=== PATIENT | male | born 1955 | race Caucasian/White ===

== ENCOUNTER 2018-08-22 13:45 | Inpatient (IN) | payer OTHER ==
[~2018-08-22] VITALS: Ht 175.3 cm; Wt 76.0 kg
[2018-08-22 14:23] LABS: HEMATOCRIT 34.1 % (42.0-52.0); MEAN CORPUSCULAR VOLUME 90.1 FL (78-98); MEAN PLATELET VOLUME 8.8 FL (7.4-10.4); PLATELET COUNT 265 X10'3 (140-440); RED BLOOD COUNT 3.79 X10'6 (4.70-6.10); WHITE BLOOD COUNT 7.3 X10'3 (4.5-11.0)
[2018-08-22] MEDS ORDERED: ondansetron 4mg rapidly disintigrating tab PO ONE (14:25)
[2018-08-22] MEDS ORDERED: sulfamethoxazole/trimethoprim DS (800/160mg) tablet PO ONE (14:25)
[2018-08-22] MEDS ORDERED: TETanus/Pertussis (Acell)/Diphther VAC/PF (Tdap-Adult) 0.5ml syringe IM ONE (14:25)
[2018-08-22] MEDS ORDERED: bacitracin 15gm ointment TP ONE (14:25)
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
[2018-08-22] MEDS ORDERED: SULF1TAB49 PO (14:26)
[2018-08-22 14:39] LABS: HEMOGLOBIN 11.4 g/dl (14.0-17.9); MEAN CORPUSCULAR HEMOGLOBIN 29.7 PG (27.0-31.0)
[2018-08-22 15:01] LABS: ANION GAP 22 (8-16); CHLORIDE 84 MMOL/L (99-107); POTASSIUM 4.9 MMOL/L (3.5-5.1); SODIUM 125 MMOL/L (135-145)
[2018-08-22 15:02] LABS: ALANINE AMINOTRANSFERASE 58 U/L (12-78); ALBUMIN 2.7 G/DL (3.4-5.0); ALBUMIN/GLOBULIN RATIO 0.6 (1.1-1.5); ALKALINE PHOSPHATASE 421 IU/L (46-116); BILIRUBIN,TOTAL 2.6 MG/DL (0.1-1.0); BLOOD UREA NITROGEN 20 MG/DL (7-18); BUN/CREATININE RATIO 11.4 (5.4-32.0); CALCIUM 9.1 MG/DL (8.5-10.1); CREATININE 1.76 MG/DL (0.60-1.10); TOTAL PROTEIN 7.4 G/DL (6.4-8.2); eGFR 39 ML/MIN
[2018-08-22 15:04] LABS: GLUCOSE 734 MG/DL (70-104)
[2018-08-22 15:07] LABS: PARTIAL THROMBOPLASTIN TIME 22 SECONDS (22-32)
[2018-08-22 15:09] LABS: ASPARTATE AMINO TRANSFERASE 126 U/L (10-37)
[2018-08-22 15:16] LABS: TOTAL CELLS COUNTED 100
[2018-08-22 15:17] LABS: PLATELET ESTIMATE NORMAL
[2018-08-22] MEDS ORDERED: cyanocobalamin 1,000 mcg/ml inj IM ONE (15:20)
[2018-08-22] MEDS: thiamine 100mg/ml 2ml inj. IV ONE ×2 (16:03→16:55)
[2018-08-22 16:11] LABS: ABG BASE EXCESS 1.9 mmol/L (-2.0-3.0); ABG HCO3 25.6 mmol/L (22.0-26.0); ABG OXYGEN SATURATION 93.2 % (95-98); ABG PCO2 (T) 36.7 mmHg (35.0-48.0); ABG PH (T) 7.461 (7.350-7.450); ABG PO2 (T) 68.3 mmHg (83-108); ALLEN'S TEST Positive; FCOHb 0.3 % (0.5-1.5); FMetHb 0.1 % (0.3-1.12); FO2Hb 92.8 % (94-100); TOTAL HEMOGLOBIN 11.4 G/dl (14.0-18.0)
[2018-08-22] MEDS: insulin regular, human 10 units/0.1 ml syringe IV ONE ×2 (16:18→16:55)
[2018-08-22 16:44] LABS: ETHANOL 0.017 GM/DL (0.0-0.010)
--- NOTE | 2018-08-22 17:09 | NUR ---
DR. CHAVEZ AT THE BEDSIDE FOR INPATIENT ADMISSION INTERVIEW. PATIENT WAS UP TO BATHROOM AND UA OBTAINED.
[2018-08-22] MEDS ORDERED: acetaminophen 325mg tablet PO PRN (17:25)
[2018-08-22] MEDS ORDERED: ondansetron/PF 4mg/2ml inj IV PRN (17:25)
[2018-08-22] MEDS ORDERED: magnesium 4gm in 100ml NS 100 ML IV PRN (17:25)
[2018-08-22] MEDS: K and/or MAG REPLACEMENT MC SCH (17:25)
[2018-08-22] MEDS ORDERED: magnesium hydroxide 30ml (MOM) UD suspension PO PRN (17:25)
[2018-08-22] MEDS ORDERED: potassium Cl 40MEQ/NS 500ml 500 ML IV PRN ×2 (17:25)
[2018-08-22] MEDS ORDERED: potassium Cl 20 mEq SR tablet PO PRN (17:25)
[2018-08-22] MEDS ORDERED: mag hydrox/Alum hydrox/simeth 30ml oral suspension PO PRN (17:25)
[2018-08-22] MEDS ORDERED: magnesium 2GM in 50ml NS 50 ML IV PRN (17:25)
[2018-08-22 17:26] LABS: CLARITY,URINE CLEAR (Clear); COLOR,URINE STRAW (Yellow); GLUCOSE, URINE >=1000 mg/dl (Neg); KETONES,URINE NEGATIVE (Neg); LEUKOCYTE ESTERASE ,URINE NEGATIVE (Neg); NITRITES, URINE NEGATIVE (Neg); OCCULT BLOOD,URINE SMALL (Neg); PH,URINE 5.5 (4.8-8.0); PROTEIN,URINE NEGATIVE (Neg)
[2018-08-22 17:31] LABS: UA COLLECTION TYPE CLN CATCH MIDSTREAM
[2018-08-22 17:32] LABS: BACTERIA,URINE NONE SEEN /HPF (Neg); MUCUS STRANDS NONE SEEN /LPF (Neg); RBC,URINE 0-2 /HPF (0-2); SQUAMOUS EPITHELIAL CELL,UR FEW /LPF (FEW); WBC,URINE 0-4 /HPF (0-4)
[2018-08-22 17:40] LABS: URINE AMPHETAMINE SCREEN NEGATIVE (Neg); URINE BARBITUATE SCREEN NEGATIVE (Neg); URINE BENZODIAZEPINES SCREEN NEGATIVE (Neg); URINE CANNABINOID SCREEN NEGATIVE (Neg); URINE COCAINE SCREEN NEGATIVE (Neg); URINE METHADONE SCREEN NEGATIVE (Neg); URINE OPIATE SCREEN NEGATIVE (Neg); URINE PHENCYCLIDINE SCREEN NEGATIVE (Neg)
[2018-08-22] MEDS ORDERED: NO HOME MEDS (17:45)
[2018-08-22] MEDS ORDERED: LORazepam 1 MG tablet PO PRN (17:45)
[2018-08-22] MEDS ORDERED: dextrose 50%-water 50ml dispensing syringe IV PRN ×5 (17:45→19:05)
[2018-08-22] MEDS ORDERED: thiamine inj. 100 MG in normal saline 100ml IV soln 100 ML IV ONE (17:45)
[2018-08-22] MEDS ORDERED: thiamine inj. 100 MG, magnesium sulf injection 2 GM, MVI, adult No.4 with vit. K 10 ML ... IV SCH ×4 (17:45)
[2018-08-22] MEDS ORDERED: insulin regular, human 100 UNIT in normal saline 100ml IV soln 99 ML IV SCH ×2 (18:30)
[2018-08-22] MEDS ORDERED: folic acid inj. 2 MG, thiamine inj. 100 MG, MVI, adult No.4 with vit. K 10 ML in dextro... IV SCH ×4 (18:30)
[2018-08-22] MEDS ORDERED: glucagon, human recombinant 1mg kit SUBCUT PRN ×2 (18:50→19:05)
[2018-08-22] MEDS ORDERED: MESSAGE TO PHARMACY PO ONE ×2 (18:50→19:05)
[2018-08-22] MEDS ORDERED: dextrose ORAL solution 15 GM/59 ML bottle PO PRN ×4 (18:50→19:05)
[2018-08-22] MEDS ORDERED: vancomycin/NS 1 GM ADD-VANTAGE 250 ML IV SCH (19:00)
[2018-08-22] MEDS ORDERED: insulin Lispro (HumaLOG) vial - multi-dose SQ SCH (19:05)
--- NOTE | 2018-08-22 19:05 | NUR ---
PT PREPRANDIAL BLOOD GLUCOSE 288. NOTIFIED. NEW ORDERS TO CANCEL INSULIN DRIP, AND PLACE PT ON HYPER/HYPOGLYCEMIC PROTOCOL. PT STARTED AT LEVEL 2.
[2018-08-22] MEDS: lactobacillus rhamnosus 10,000 MMU CELLS/CAPSULE PO SCH (19:39)
[2018-08-22] MEDS: lisinopril 10 MG tablet PO SCH (19:39)
[2018-08-22] MEDS: heparin, porcine 5000 units/ml vial SQ SCH (19:41)
[2018-08-22] MEDS: insulin Lispro (HumaLOG) vial - multi-dose SQ SCH ×2 (19:45→22:35)
[2018-08-22] MEDS ORDERED: insulin glargine (Lantus) pen - multi-dose SQ SCH (21:00)
[2018-08-22 21:26] LABS: ALBUMIN 2.6 G/DL (3.4-5.0); ANION GAP 12 (8-16); BLOOD UREA NITROGEN 20 MG/DL (7-18); BUN/CREATININE RATIO 11.7 (5.4-32.0); CALCIUM 9.1 MG/DL (8.5-10.1); CHLORIDE 88 MMOL/L (99-107); CREATININE 1.71 MG/DL (0.60-1.10); GLUCOSE 428 MG/DL (70-104); SODIUM 127 MMOL/L (135-145); TOTAL CARBON DIOXIDE 27.4 MMOL/L (24-32); eGFR 41 ML/MIN
[2018-08-22 21:30] LABS: POTASSIUM 4.2 MMOL/L (3.5-5.1)
--- NOTE | 2018-08-22 21:30 | NUR ---
Patient in room PCU 3024. I have received report from WATER CHEMIST and had the opportunity to ask questions and assume patient care.
[2018-08-22 22:00] VITALS: BP 132/82
[2018-08-22] MEDS: insulin glargine (Lantus) pen - multi-dose SQ SCH (22:37)
[2018-08-22] MEDS: normal saline 1000ml 1,000 ML IV SCH (23:47)
[2018-08-23 02:00] VITALS: BP 134/85
[2018-08-23] MEDS: normal saline 1000ml 1,000 ML IV SCH ×3 (03:24→22:52)
[2018-08-23 05:29] LABS: HEMATOCRIT 30.7 % (42.0-52.0); HEMOGLOBIN 10.9 g/dl (14.0-17.9); MEAN CORPUSCULAR HEMOGLOBIN 30.7 PG (27.0-31.0); MEAN CORPUSCULAR HGB CONC 35.5 g/dL (33.0-36.5); MEAN CORPUSCULAR VOLUME 86.7 FL (78-98); MEAN PLATELET VOLUME 9.3 FL (7.4-10.4); PLATELET COUNT 224 X10'3 (140-440); RED BLOOD COUNT 3.55 X10'6 (4.70-6.10); RED CELL DISTRIBUTION WIDTH 15.1 % (11.5-14.5); WHITE BLOOD COUNT 7.8 X10'3 (4.5-11.0)
[2018-08-23 05:41] LABS: ALBUMIN 2.3 G/DL (3.4-5.0); ALKALINE PHOSPHATASE 334 IU/L (46-116); AMYLASE 37 U/L (25-115); BILIRUBIN,TOTAL 1.8 MG/DL (0.1-1.0); BLOOD UREA NITROGEN 14 MG/DL (7-18); BUN/CREATININE RATIO 10.8 (5.4-32.0); LIPASE 300 U/L (73-393); TOTAL CARBON DIOXIDE 30.1 MMOL/L (24-32); eGFR 56 ML/MIN
[2018-08-23 05:59] LABS: INR 1.1 INR
[2018-08-23 06:09] LABS: PLATELET ESTIMATE NORMAL; TOTAL CELLS COUNTED 100
[2018-08-23 06:22] LABS: ALANINE AMINOTRANSFERASE 43 U/L (12-78); ALBUMIN/GLOBULIN RATIO 0.5 (1.1-1.5); ANION GAP 9 (8-16); ASPARTATE AMINO TRANSFERASE 89 U/L (10-37); CHLORIDE 94 MMOL/L (99-107); GLUCOSE 194 MG/DL (70-104); PHOSPHORUS 2.4 MG/DL (2.3-4.5); SODIUM 133 MMOL/L (135-145); TOTAL PROTEIN 6.7 G/DL (6.4-8.2)
--- NOTE | 2018-08-23 06:25 | NUR ---
Problems reprioritized. Patient report given, questions answered & plan of care reviewed with Diana YIN.
[2018-08-23 06:28] LABS: POTASSIUM 3.2 MMOL/L (3.5-5.1)
[2018-08-23 06:30] VITALS: BP 132/73
[2018-08-23 06:40] LABS: MAGNESIUM 0.9 MG/DL (1.5-2.4)
--- NOTE | 2018-08-23 06:42 | NUR ---
Paged Dr Patel for critical lab report PAGER ID: [phone] MESSAGE: Diana [phone]. RE: Sandra De La Cruz [id number]. Critical Lab: Mg of 0.9
--- NOTE | 2018-08-23 07:15 | NUR ---
paged Dr Singh regarding Mg replacement PAGER ID: [phone] MESSAGE: Diana [phone]. RE Sandra De La Cruz Critical Mg of 0.9. Will give first PO replacement dose with morning meds. Would you like me to initiate IV replacement protocol or continue with PO? Thank you
[2018-08-23] MEDS: multivitamins, therapeutics tablet PO SCH (07:25)
[2018-08-23] MEDS: heparin, porcine 5000 units/ml vial SQ SCH ×2 (07:25→21:31)
[2018-08-23] MEDS: lisinopril 10 MG tablet PO SCH (07:26)
[2018-08-23] MEDS: thiamine 100mg tablet PO SCH (07:26)
[2018-08-23] MEDS: folic acid 1mg tablet PO SCH (07:26)
[2018-08-23] MEDS: magnesium Cl slow-release 64mg tablet PO PRN ×2 (07:27→21:33)
[2018-08-23] MEDS: potassium Cl 20 mEq SR tablet PO PRN ×3 (07:27→17:59)
[2018-08-23] MEDS: lactobacillus rhamnosus 10,000 MMU CELLS/CAPSULE PO SCH ×2 (07:27→21:31)
[2018-08-23] MEDS: K and/or MAG REPLACEMENT MC SCH (07:29)
--- NOTE | 2018-08-23 08:42 | NUR ---
per Dr Singh, initiated IV Mg replacement protocol
--- NOTE | 2018-08-23 08:53 | NUR ---
DM consult. Patient presented with very high blood glucose between 194-734 mg/dl, noted that hemoglobin A1c labs were ordered but cancelled afterwards, discussed with bedside RN re ordering A1c lab. Addendum: 08/23/18 at [address] Amended: Links added.
[2018-08-23] MEDS: insulin Lispro (HumaLOG) vial - multi-dose SQ SCH ×3 (09:09→18:52)
[2018-08-23] MEDS: vancomycin/NS 1 GM ADD-VANTAGE 250 ML IV SCH ×2 (09:48→21:31)
[2018-08-23 11:00] VITALS: BP 121/68
[2018-08-23 12:00] LABS: HEMOGLOBIN A1C 10.8 % (4.5-6.2)
[2018-08-23] MEDS: neomy sulf/bacitrac zn/polymixin b oint 14.2 gm tube TP SCH ×4 (13:49→21:41)
[2018-08-23 15:00] VITALS: BP 116/68
--- NOTE | 2018-08-23 17:34 | NUR ---
Ambulated with patient, 600 feet. Patient was asymptomatic, no complaints.
[2018-08-23 18:00] VITALS: BP 147/65
--- NOTE | 2018-08-23 18:23 | NUR ---
Problems reprioritized. Patient report given, questions answered & plan of care reviewed with Melonie RN.
--- NOTE | 2018-08-23 18:41 | NUR ---
Patient in room PCU 3024. I have received report from KRIS YIN and had the opportunity to ask questions and assume patient care.
--- NOTE | 2018-08-23 20:49 | NUR ---
pt has a glucose of 65. he says he feels completely fine and wanted to drink some juice. will recheck in 15 min.
[2018-08-23] MEDS: insulin glargine (Lantus) pen - multi-dose SQ SCH (21:00)
[2018-08-23 22:00] VITALS: BP 132/75
--- NOTE | 2018-08-23 22:00 | NUR ---
phoned Dr BORJAS to report low glucose of 65 which came up to 109. lantus is scheduled, explained pt situation and glucose trend. per SUAD, give 8 units of lantus for tonight one time
[2018-08-23] MEDS ORDERED: insulin glargine (Lantus) pen - multi-dose SQ ONE (22:05)
[2018-08-24 02:00] VITALS: BP 139/84
--- NOTE | 2018-08-24 06:28 | NUR ---
Problems reprioritized. Patient report given, questions answered & plan of care reviewed with KRIS YIN.
[2018-08-24 06:30] VITALS: BP 144/84
--- NOTE | 2018-08-24 06:36 | NUR ---
Patient in room PCU 3024B. I have received report from Melonie RN and had the opportunity to ask questions and assume patient care.
[2018-08-24] MEDS ORDERED: VANCOMYCIN LEVEL IV ONE ×2 (07:30→19:30)
[2018-08-24] MEDS: lactobacillus rhamnosus 10,000 MMU CELLS/CAPSULE PO SCH (07:51)
[2018-08-24] MEDS: vancomycin/NS 1 GM ADD-VANTAGE 250 ML IV SCH ×2 (07:51→08:41)
[2018-08-24 07:52] VITALS: BP_SYST 153
[2018-08-24] MEDS: thiamine 100mg tablet PO SCH (07:52)
[2018-08-24] MEDS: folic acid 1mg tablet PO SCH (07:52)
[2018-08-24] MEDS: multivitamins, therapeutics tablet PO SCH (07:52)
[2018-08-24] MEDS: lisinopril 10 MG tablet PO SCH (07:52)
[2018-08-24] MEDS: heparin, porcine 5000 units/ml vial SQ SCH (07:54)
[2018-08-24] MEDS: insulin Lispro (HumaLOG) vial - multi-dose SQ SCH (09:20)
[2018-08-24] MEDS ORDERED: GLYB5TAB7 PO (11:51)
[2018-08-24] MEDS ORDERED: CLIN150C2 PO (11:51)
[2018-08-24] MEDS ORDERED: THIA100T70 PO (11:51)
[2018-08-24] MEDS ORDERED: METF500T PO (11:51)
[2018-08-24] MEDS ORDERED: OMEP40CA37 PO (11:51)
--- NOTE | 2018-08-24 12:10 | NUR ---
Patient refused blood sugar check by resource ANNAMARIA Smith because he will be discharging soon.
--- NOTE | 2018-08-24 13:22 | NUR ---
Per MD, patient stable for discharge. IV removed with catheter intact and tele monitor discontinued. Provided patient with discharge packet, all questions answered. Gave pt [facility] Pt will followup with primary medical provider tomorrow. All belongings sent with patient. Wound care photos taken. library services dean gave patient bus passes, and patient was escorted out via wheelchair by staff to bus stop to take him home.
--- NOTE | 2018-08-24 14:47 | NUR ---
DM Consult: Pt seen by DESEAN and declined verbal DM diet ed; written w/ DESEAN contact information left at bedside. Addendum: 08/24/18 at [address] Amended: Links added.
[2018-08-25] MEDS ORDERED: VANCOMYCIN LEVEL IV ONE (18:30)
== END 2018-08-24 13:22 | disposition home or self-care (01) | DRG 637 ==
LOC: ER 13:46 → CMPBEDREQ 21:23 → PCU 3S 21:45
PROVIDERS: ADMIT Internal Medicine; ATTEND Internal Medicine
PROC: 3E0234Z Introduction of Serum, Toxoid and Vaccine into Muscle, Percutaneous Approach (ICD-10-PCS; principal; 2018-08-22)
DX: E11.00 Type 2 diabetes mellitus with hyperosmolarity without nonketotic hyperglycemic-hyperosmolar coma (NKHHC) (principal); N17.0 Acute kidney failure with tubular necrosis; E87.1 Hypo-osmolality and hyponatremia; K70.10 Alcoholic hepatitis without ascites; T14.8XXA Other injury of unspecified body region, initial encounter; E78.00 Pure hypercholesterolemia, unspecified; E86.0 Dehydration; F41.0 Panic disorder [episodic paroxysmal anxiety]; F32.9 Major depressive disorder, single episode, unspecified; E87.6 Hypokalemia; I10 Essential (primary) hypertension; I25.10 Atherosclerotic heart disease of native coronary artery without angina pectoris; S11.91XA Laceration without foreign body of unspecified part of neck, initial encounter; F10.20 Alcohol dependence, uncomplicated; Z23 Encounter for immunization; Z79.84 Long term (current) use of oral hypoglycemic drugs; Z79.899 Other long term (current) drug therapy; Z88.0 Allergy status to penicillin
CPT/HCPCS: 36415; 36600; 70450; 71045; 72125; 80048; 80053; 80305; 80320; 81001; 82009; 82150; 82803; 82948; 83036; 83690; 83735; 84100; 84132; 84484; 85018; 85025; 85610; 85730; 87040; 87070; 90715; 93005; 96365; 96375; 99285; G0378; J1644; J1815; J3370; J3411; J3420; J3475; J3490; J7030; J7060

== ENCOUNTER 2018-09-04 06:29 | Emergency (ER) | payer OTHER ==
[~2018-09-04] VITALS: Ht 175.3 cm; Wt 76.4 kg
[~2018-09-04 06:29] MED LIST: GLYB5TAB7 PO; METF500T PO; OMEP40CA37 PO; THIA100T70 PO
[2018-09-04 06:39] VITALS: BP 149/90
== END 2018-09-04 07:26 | disposition left against medical advice (07) ==
LOC: ER 06:30
DX: M54.2 Cervicalgia (principal); M25.562 Pain in left knee; I25.10 Atherosclerotic heart disease of native coronary artery without angina pectoris; E78.00 Pure hypercholesterolemia, unspecified; E11.9 Type 2 diabetes mellitus without complications; Z88.0 Allergy status to penicillin
CPT/HCPCS: 99281

== ENCOUNTER 2021-01-11 05:44 | Day surgery (SDC) | payer OTHER ==
[2021-01-04 15:02] LABS: CLARITY,URINE CLEAR (Clear); COLOR,URINE YELLOW (Yellow); GLUCOSE, URINE 500 mg/dl (Neg); KETONES,URINE NEGATIVE (Neg); LEUKOCYTE ESTERASE ,URINE NEGATIVE (Neg); NITRITES, URINE NEGATIVE (Neg); OCCULT BLOOD,URINE NEGATIVE (Neg); PROTEIN,URINE NEGATIVE (Neg); UROBILINOGEN,URINE 0.2 E.U/dL (0.2-1.0)
[2021-01-04 15:15] LABS: UA COLLECTION TYPE CLN CATCH MIDSTREAM
[2021-01-04 15:17] LABS: BASOPHILS % (AUTO) 0.4 % (0-1); EOSINOPHILS # (AUTO) 0.1 X10'3 (0-0.9); EOSINOPHILS % (AUTO) 1.5 % (0-6); LYMPHOCYTES # (AUTO) 2.6 X10'3 (1.1-4.8); LYMPHOCYTES % (AUTO) 34.6 % (21-51); MEAN CORPUSCULAR HEMOGLOBIN 27.5 PG (27.0-31.0); MEAN CORPUSCULAR HGB CONC 33.5 g/dL (33.0-36.5); MEAN CORPUSCULAR VOLUME 82.1 FL (78-98); MEAN PLATELET VOLUME 9.5 FL (7.4-10.4); MONOCYTES # (AUTO) 0.6 X10'3 (0-0.9); MONOCYTES % (AUTO) 8.4 % (2-12); NEUTROPHILS # (AUTO) 4.1 X10'3 (1.8-7.7); NEUTROPHILS % (AUTO) 55.1 % (42-75); PRE OP HEMATOCRIT 40.3 % (42.0-52.0); PRE OP HEMOGLOBIN 13.5 g/dL (14.0-17.9); PRE OP PLATELET COUNT 182 X10'3 (140-440); RED BLOOD COUNT 4.91 X10'6 (4.70-6.10); RED CELL DISTRIBUTION WIDTH 13.4 % (11.5-14.5)
[2021-01-04 15:18] LABS: ALBUMIN 4.6 G/DL (3.4-5.0); ALBUMIN/GLOBULIN RATIO 1.3 (1.1-1.5); ALKALINE PHOSPHATASE 107 IU/L (46-116); BLOOD UREA NITROGEN 23 MG/DL (7-18); BUN/CREATININE RATIO 17.7 (5.4-32.0); CALCIUM 9.1 MG/DL (8.5-10.1); CHLORIDE 107 MMOL/L (99-107); PRE OP ALT 41 U/L (30-65); PRE OP ANION GAP 8 (8-16); PRE OP AST 34 U/L (10-37); PRE OP BILIRUB, TOTAL 0.7 MG/DL (0.0-1.0); PRE OP POTASSIUM 4.1 MMOL/L (3.4-5.1); PRE OP SODIUM 143 MMOL/L (135-145); TOTAL CARBON DIOXIDE 28.3 MMOL/L (24-32); TOTAL PROTEIN 8.1 G/DL (6.4-8.2); eGFR 56 ML/MIN
[2021-01-04 15:23] LABS: PRE OP GLUCOSE 236 MG/DL (70-104)
[~2021-01-11] VITALS: Ht 175.3 cm; Wt 79.7 kg
[2021-01-11] VITALS (12 sets, daily range): BP systolic 107–136; BP diastolic 49–80
[~2021-01-11 05:44] MED LIST changes: -GLYB5TAB7 PO; -METF500T PO; +NO HOME MEDS; -OMEP40CA37 PO; -THIA100T70 PO; +cefazolin/dext.iso 2gm/100ml IV ONE; +famotidine 20mg tablet PO ONE; +ringers solution, lacted 1,000 ML IV SCH
[2021-01-11] MEDS ORDERED: bacitracin 15gm ointment TP ONE ×2 (06:54→08:14)
[2021-01-11] MEDS ORDERED: BUPIVAcaine 0.5% inj/PF 30 ML ONE (06:55)
[2021-01-11] MEDS ORDERED: insulin regular, human U-100 3ml vial - multi-dose ONE (06:56)
[2021-01-11] MEDS ORDERED: midazolam 1 mg/ML 2ml injection ONE (07:06)
[2021-01-11] MEDS ORDERED: fentaNYL /PF 50mcg/ml 5ml ampule ONE (07:07)
[2021-01-11] MEDS ORDERED: propofol inj 20 ML IV ONE (07:08)
[2021-01-11] MEDS ORDERED: LIDOcaine 2% (20mg/ml) 5ml vial ONE (07:08)
[2021-01-11] MEDS ORDERED: rocuronium 10mg/ml inj IV ONE (07:09)
[2021-01-11] MEDS ORDERED: meperidine/PF 25mg/ml syringe IV PRN ×3 (07:15)
[2021-01-11] MEDS ORDERED: ondansetron/PF 4mg/2ml inj IV PRN (07:15)
[2021-01-11] MEDS ORDERED: proCHLORperazine 10 MG/2 ml inj IV PRN (07:15)
[2021-01-11] MEDS ORDERED: ringers solution, lacted 1,000 ML IV SCH (07:15)
[2021-01-11] MEDS ORDERED: morphine 4 MG/ML inj SYRINge IV PRN (07:15)
[2021-01-11] MEDS ORDERED: morphine 2 MG/ML inj. syringe IV PRN (07:15)
[2021-01-11] MEDS ORDERED: sevoflurane 250ml liquid IH ONE (07:16)
[2021-01-11] MEDS ORDERED: BUPIVAcaine/PF 2.5mg/ml (0.25%) 10ml vial ONE (07:45)
[2021-01-11] MEDS ORDERED: acetaminophen 1,000mg/100ml IV 100 ML IV ONE (08:08)
[2021-01-11] MEDS ORDERED: neostigmine methylsulfate 1 MG/ML 10ml vial ONE (08:08)
[2021-01-11] MEDS ORDERED: ondansetron/PF 4mg/2ml inj ONE (08:08)
[2021-01-11] MEDS ORDERED: glycopyrrolate 0.2mg/ml inj ONE (08:08)
--- NOTE | 2021-01-11 08:34 | NUR ---
Received from OR via PILY , accompanied by Anesthesiologist JOSH and report given by Anesthesiolgist. PATIENT WITH 20G PIV IN RIGHT UE RUNNING LR AT 100. RIGHT FOOT IN BOOT AND ELEVATED. NO DRAINAGE PRESENT. 10L MASK ON WITH 97% SATURATIONS. Addendum: 01/11/21 at 0846 by Christopher Silva RN, RN Amended: Links added.
--- NOTE | 2021-01-11 10:14 | NUR ---
ALL [facility] CRITERIA HAS BEEN MET. PATIENT GIVEN DISCHARGE INSTRUCTIONS. ALL QUESTIONS ANSWERED. DRESSING AND BOOT CDI, PATIENT DEMONSTRATED SAFE GAIT PATTERN WBAT WITH NO OBSERVED LOB WHILE AMBULATING IN ROOM AND TO THE BATHROOM. NO DRAINAGE AFTER GAIT. PATIENT PICKED UP BELONGINGS AT [facility]). CAB ARRANGED BY FABIENNE ZEPEDA RN. LEGAL AIDE VERIFIED OFF MY FACESHEET THAT HE INDEED HAS THE CORRECT ADDRESS. ADDRESS ALSO VERIFIED THRU Hazel ZEPEDA WHO CALLED THE CA TO CONFIRM ADDRESS. PATIENT STATES HE FEELS GOOD. HAD WATER AND PRIYANKA CRACKERS WHILE HERE IN [place] WITH NO NAUSEA OR VOMITTING. PAIN CONTROLLED. ALSO DISCUSSED WITH PATIENT THAT HE HAS ALL HIS PRESCRIPTIONS IN HIS BAG. PAIN MEDS AND ANTIBIOTICS IN HIS BAG. PATIENT THANKED ME AND ENTERED THE CAB SAFELY WHERE LEGAL AIDE TOO HIM HOME. Addendum: 01/11/21 at 1040 by Christopher Silva RN RN Amended: Links added.
== END 2021-01-11 10:14 | disposition home or self-care (01) ==
LOC: PAS 05:44
PROVIDERS: ATTEND Podiatrist Foot & Ankle Surgery
DX: M20.21 Hallux rigidus, right foot (principal); M21.621 Bunionette of right foot; M19.071 Primary osteoarthritis, right ankle and foot; I10 Essential (primary) hypertension; E11.9 Type 2 diabetes mellitus without complications; Z98.890 Other specified postprocedural states; Z20.822 Contact with and (suspected) exposure to COVID-19; Z79.899 Other long term (current) drug therapy
CPT/HCPCS: 28110; 28750; 36415; 73620; 76000; 80053; 81003; 82948; 85025; 93005; A6223; C1713; J0131; J2001; J2250; J2405; J2704; J2710; J3010; J3490; U0003; U0005; Z7506; Z7508; Z7512; A4215; A4618; A6449; A7000; J1815; J7120

== ENCOUNTER 2021-01-24 11:05 | Emergency (ER) | payer OTHER ==
[~2021-01-24 11:05] MED LIST changes: -cefazolin/dext.iso 2gm/100ml IV ONE; -famotidine 20mg tablet PO ONE; -ringers solution, lacted 1,000 ML IV SCH
== END 2021-01-24 12:37 | disposition left against medical advice (07) ==
LOC: ER 11:06
DX: M79.673 Pain in unspecified foot (principal); Z53.21 Procedure and treatment not carried out due to patient leaving prior to being seen by health care provider

== ENCOUNTER 2023-07-04 22:53 | Emergency (ER) | payer OTHER ==
[~2023-07-04] VITALS: Ht 177.8 cm; Wt 79.5 kg
[2023-07-04 22:59] VITALS: TEMP 97.4
[2023-07-04] MEDS ORDERED: insulin Lispro (HumaLOG) vial - multi-dose SQ SCH (23:30)
[2023-07-04] MEDS: normal saline 1000ml 1,000 ML IV ONE ×2 (23:42)
[2023-07-04] MEDS ORDERED: insulin Lispro (HumaLOG) vial - multi-dose SQ ONE (23:45)
[2023-07-05] MEDS: normal saline 1000ml 1,000 ML IV ONE (00:16)
[2023-07-05] MEDS: normal saline 1000ML IV soln IVB ONE (00:16)
[2023-07-05 00:34] LABS: BASOPHILS # (AUTO) 0.1 X10'3 (0-0.2); BASOPHILS % (AUTO) 1.5 % (0-1); EOSINOPHILS # (AUTO) 0.1 X10'3 (0-0.9); EOSINOPHILS % (AUTO) 2.1 % (0-6); HEMATOCRIT 39.8 % (42.0-52.0); HEMOGLOBIN 13.2 g/dl (14.0-17.9); LYMPHOCYTES # (AUTO) 2.6 X10'3 (1.1-4.8); MEAN CORPUSCULAR HEMOGLOBIN 28.7 PG (27.0-31.0); MEAN CORPUSCULAR HGB CONC 33.1 g/dL (33.0-36.5); MEAN CORPUSCULAR VOLUME 86.6 FL (78-98); MEAN PLATELET VOLUME 8.4 FL (7.4-10.4); MONOCYTES # (AUTO) 0.4 X10'3 (0-0.9); MONOCYTES % (AUTO) 6.7 % (2-12); NEUTROPHILS # (AUTO) 2.5 X10'3 (1.8-7.7); NEUTROPHILS % (AUTO) 43.7 % (42-75); PLATELET COUNT 191 X10'3 (140-440); RED BLOOD COUNT 4.59 X10'6 (4.70-6.10); RED CELL DISTRIBUTION WIDTH 13.3 % (11.5-14.5); WHITE BLOOD COUNT 5.7 X10'3 (4.5-11.0)
[2023-07-05] MEDS: LORazepam 2 mg/ml vial IM ONE (00:46)
[2023-07-05 00:59] LABS: ALBUMIN 3.7 G/DL (3.4-5.0); ANION GAP 16 (8-16); BLOOD UREA NITROGEN 12 MG/DL (7-18); BUN/CREATININE RATIO 10.5 (10.0-20.0); CALCIUM 8.9 MG/DL (8.5-10.1); CHLORIDE 94 MMOL/L (99-107); CREATININE 1.14 MG/DL (0.60-1.10); ETHANOL 199 MG/DL (<10); SODIUM 138 MMOL/L (135-145); TOTAL CARBON DIOXIDE 27.6 MMOL/L (24-32); eCRCL 65 ML/MIN; eGFR 64 ML/MIN
[2023-07-05 01:09] LABS: URINE AMPHETAMINE SCREEN NEGATIVE (Neg); URINE BARBITUATE SCREEN NEGATIVE (Neg); URINE BENZODIAZEPINES SCREEN NEGATIVE (Neg); URINE CANNABINOID SCREEN NEGATIVE (Neg); URINE COCAINE SCREEN NEGATIVE (Neg); URINE METHADONE SCREEN NEGATIVE (Neg); URINE OPIATE SCREEN NEGATIVE (Neg); URINE PHENCYCLIDINE SCREEN NEGATIVE (Neg)
[2023-07-05 01:09] LABS: POTASSIUM 3.7 MMOL/L (3.5-5.1)
[2023-07-05 01:12] LABS: GLUCOSE 495 MG/DL (70-104)
[2023-07-05] MEDS: insulin Lispro (HumaLOG) vial - multi-dose SQ ONE ×2 (01:22)
[2023-07-05 03:01] VITALS: BP 104/64; PULSE 96; RESP 18; O2SAT 98
== END 2023-07-05 03:03 | disposition home or self-care (01) ==
LOC: ER 22:53
DX: E11.65 Type 2 diabetes mellitus with hyperglycemia (principal); F32.A Depression, unspecified; F10.129 Alcohol abuse with intoxication, unspecified; I25.10 Atherosclerotic heart disease of native coronary artery without angina pectoris; Y90.9 Presence of alcohol in blood, level not specified
CPT/HCPCS: 36415; 80048; 80305; 80320; 82140; 82948; 84484; 85025; 96360; 96372; 99284; J1815; J2060; J7030